=== PATIENT | male | born 1990 | race Two or more races ===

== ENCOUNTER 2024-07-02 10:44 | Emergency (ER) | payer MEDICAID ==
[~2024-07-02] VITALS: Ht 175.3 cm; Wt 104.3 kg
[2024-07-02 10:47] VITALS: O2SAT 99
[2024-07-02 11:25] LABS: *BILIRUBIN,URIN NEGATIVE (NEGATIVE); *CLARITY,URINE CLEAR (CLEAR); *COLOR,URINE YELLOW (YELLOW); *KETONES,URINE NEGATIVE (NEGATIVE); *PROTEIN,URINE 1+ (NEGATIVE); *UROBILINOGEN,URINE 0.2 E.U./dl (NORMAL); LEUKOCYTE ESTERASE ,URINE NEGATIVE (NEGATIVE); NITRITE, URINE NEGATIVE (NEGATIVE); UGLUCOSE NEGATIVE (NEGATIVE)
[2024-07-02 11:27] LABS: *BLOOD, URINE TRACE (NEGATIVE)
[2024-07-02 11:28] LABS: BACTERIA,URINE FEW /HPF (NONE SEEN); WBC,URINE 0-3 /HPF (0-3)
[2024-07-02] MEDS ORDERED: CIPR-262 PO (11:49)
== END 2024-07-02 11:51 | disposition home or self-care (01) ==
LOC: ER 10:49
DX: R31.29 Other microscopic hematuria (principal)
CPT/HCPCS: A4606; A4663